=== PATIENT | male | born 1935 | race Hispanic/Latino ===

== ENCOUNTER 2022-06-30 16:21 | Observation (INO) | payer MEDICARE ==
[~2022-06-30] VITALS: Ht 172.7 cm; Wt 62.6 kg
[~2022-06-30 16:21] MED LIST: FENTANYL CITRATE/PF 100MCG/2 ML INJ ONE; MIDAZOLAM HCL 2 MG/2 ML VIAL ONE
[2022-06-30] MEDS ORDERED: SODIUM CHLORIDE FLUSH 10 ML SYR INJ PRN (20:15)
[2022-06-30] MEDS ORDERED: LACTULOSE SYRUP 20 GM/30 ML UDC PO PRN (20:15)
[2022-06-30 20:29] LABS: BASOPHILS % 0.3 % (0.0-1.0); EOSINOPHILS # (AUTO) 0.2 (0.0-0.4); EOSINOPHILS % 1.7 % (0.0-6.0); HEMATOCRIT 40.1 % (38.2-49.6); HEMOGLOBIN 12.9 g/dL (14.0-18.0); LYMPHOCYTES # (AUTO) 1.3 (1.0-3.2); MEAN CORPUSCULAR HEMOGLOBIN 31.9 pg (28-32); MEAN CORPUSCULAR HGB CONC 32.2 g/dL (31-35); MONOCYTES # (AUTO) 0.6 (0.2-0.8); MONOCYTES % 7.1 % (4.4-11.3); NEUTROPHILS # (AUTO) 6.9 (2.1-6.9); NEUTROPHILS % 76.5 % (38.7-80.0); PLATELET COUNT 188 x10e3/uL (140-360); RED BLOOD COUNT 4.05 x10e6/uL (4.3-5.7); RED CELL DISTRIBUTION WIDTH 14.1 % (11.7-14.4)
[2022-06-30 20:38] LABS: ANION GAP 14.2 mmol/L (8-16); CREATININE, SERUM 1.22 mg/dL (0.72-1.25); POTASSIUM 4.2 mmol/L (3.5-5.1)
[2022-06-30 23:00] VITALS: BP 105/70
[2022-06-30 23:04] VITALS: BP 137/61
[2022-07-01] VITALS (7 sets, daily range): BP systolic 127–147; BP diastolic 57–71
[2022-07-01] MEDS ORDERED: METOPROLOL SUCC25 MG PO (00:47)
[2022-07-01] MEDS ORDERED: LEVOTHYROXINE25 MCG (00:47)
[2022-07-01] MEDS ORDERED: ASPIRIN EC81 MG (00:47)
[2022-07-01] MEDS ORDERED: BRILINTA90 MG (00:47)
[2022-07-01] MEDS ORDERED: LISINOPRIL40 MG (00:47)
[2022-07-01] MEDS ORDERED: AMLODIPINE BESY10 MG (00:47)
[2022-07-01] MEDS ORDERED: GABAPENTIN300 MG (00:47)
[2022-07-01] MEDS ORDERED: MIRALAX17 GM PO (18:42)
[2022-07-01] MEDS ORDERED: DOCUSATE SODIU100 MG PO (18:45)
[2022-07-01] MEDS ORDERED: ANUSOL-HC25 MG RC (18:48)
[2022-07-01 19:07] LABS: FREE T4 (FREE THYROXINE) 0.87 ng/dL (0.8-1.8); THYROID STIMULATING HORMONE 3.266 uIU/mL (0.350-4.940)
[2022-07-01] MEDS ORDERED: GABAPENTIN 300 MG CAP PO SCH (21:00)
[2022-07-02] MEDS ORDERED: LEVOTHYROXINE SODIUM 25 MCG TABLET PO SCH (06:00)
[2022-07-02] MEDS ORDERED: AMLODIPINE BESYLATE 10 MG TAB PO SCH (09:00)
[2022-07-02] MEDS ORDERED: TICAGRELOR 90 MG TABLET PO SCH (09:00)
[2022-07-02] MEDS ORDERED: ASPIRIN 81 MG ENTERIC COATED PO SCH (09:00)
[2022-07-02] MEDS ORDERED: METOPROLOL SUCCINATE 25 MG TAB XL PO SCH (09:00)
== END 2022-07-01 19:07 | disposition home or self-care (01) ==
LOC: ER 16:44 → ERHOLD 20:14 → MED/SURG3 21:55
PROVIDERS: ADMIT Internal Medicine; ATTEND Internal Medicine
DX: K56.41 Fecal impaction (principal); K64.4 Residual hemorrhoidal skin tags; I10 Essential (primary) hypertension; E03.9 Hypothyroidism, unspecified; Z95.5 Presence of coronary angioplasty implant and graft; Z20.822 Contact with and (suspected) exposure to COVID-19
CPT/HCPCS: 36415 ×2; 74019; 80048; 84439; 84443; 85025; 99284; G0378 ×2; J2250; J3010; U0002